=== PATIENT | male | born 1990 | race Caucasian/White ===

== ENCOUNTER 2016-11-06 19:39 | Emergency (ER) | payer MEDICAID ==
[~2016-11-06] VITALS: Ht 177.8 cm; Wt 97.5 kg
[2016-11-06 19:50] VITALS: BP_SYST 140
--- NOTE | 2016-11-06 20:05 | NUR ---
Pt states he has been getting 10/10 headaches in waves. Today, he steats his pain is in the R side of her face with pressure in nares and eyes. Denies nausea and vomitting. Pt states its like a pressure like pounding pain. Will continue to monitor. No other injuries or complaints mentioned/noted. No distress noted.
[2016-11-06] MEDS ORDERED: NACL 0.9% 1,000 ML IV ONE (21:29)
[2016-11-06] MEDS ORDERED: KETOROLAC TROMETHAMINE 30 MG VIAL IVP ONE (21:30)
[2016-11-06] MEDS ORDERED: DIPHENHYDRAMINE INJ 50 MG/ML VIAL IVP ONE (21:30)
[2016-11-06 21:46] LABS: BASOPHILS % (AUTO) 0.3 % (0.0-2.0); EOSINOPHILS % (AUTO) 0.5 % (0.0-4.0); HEMATOCRIT 44.2 % (36-54); LYMPHOCYTES # (AUTO) 1.5 K/uL (1.0-5.5); LYMPHOCYTES % (AUTO) 18.8 % (20.5-51.5); MEAN CORPUSCULAR HEMOGLOBIN 30 pg (27-31); MEAN CORPUSCULAR HGB CONC 34 % (32-36); MEAN CORPUSCULAR VOLUME 87 fL (79.0-98.0); MONOCYTES # (AUTO) 0.4 K/uL (0.0-1.0); MONOCYTES % (AUTO) 4.9 % (1.7-9.3); NEUTROPHILS # (AUTO) 5.9 K/uL (1.8-7.7); NEUTROPHILS % (AUTO) 75.5 % (40.0-70.0); PLATELET COUNT (AUTO) 255 K/uL (130-430); RED BLOOD CELL COUNT(AUTO) 5.07 MIL/uL (4.2-6.2); RED CELL DISTRIBUTION WIDTH 12.7 % (9.0-15.0); WHITE BLOOD COUNT (AUTO) 7.8 K/uL (4.8-10.8)
[2016-11-06 21:55] LABS: CALCIUM 8.9 mg/dL (8.4-11.0); CREATININE 0.82 mg/dL (0.55-1.30); POTASSIUM 3.8 mmol/L (3.5-5.1)
[2016-11-06 22:00] LABS: ALBUMIN 4.4 g/dL (3.4-4.8); TOTAL BILIRUBIN 0.4 mg/dL (0.0-1.0); TOTAL PROTEIN, SERUM 7.2 g/dL (6.4-8.3)
[2016-11-06] MEDS ORDERED: chlorproMAZINE HCL 50 MG/ 2 ML AMP IV ONE (22:30)
--- NOTE | 2016-11-06 22:55 | NUR ---
Medication ampule cracked. Unable to scan med. Confirmed with full name and birthday along with allergies beforehand.
--- NOTE | 2016-11-06 22:55 | NUR ---
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 Pt is resting comfortably. VSS.
[2016-11-07 00:05] VITALS: BP_SYST 125
--- NOTE | 2016-11-07 00:05 | NUR ---
Patient given written and verbal discharge instructions and verbalizes understanding. ER MD discussed with patient the results and treatment provided. Patient in stable condition. ID arm band removed. Rx of tylenol with codeine and flexeril given. Patient educated on pain management and to follow up with PMD. Pain Scale 0/10 . Opportunity for questions provided and answered.
== END 2016-11-07 00:05 | disposition home or self-care (01) ==
LOC: SED 19:39
DX: G44.209 Tension-type headache, unspecified, not intractable (principal); R07.89 Other chest pain
CPT/HCPCS: 36415; 80053; 85025; 93005; 96361; 96374; 96375; 99285; J1200; J1885; J3230; J7030